=== PATIENT | female | born 1955 | race Two or more races ===

== ENCOUNTER 2024-12-21 07:09 | Day surgery (SDC) | payer OTHER ==
[~2024-12-21] VITALS: Ht 157.5 cm; Wt 65.8 kg
[~2024-12-21 07:09] MED LIST: ACET-1304 PO; ASCO500T11 PO; ASPI1TAB20 PO; ATOR10TA PO; BERB500C PO; CHOL25CH3 PO; CYAN-17 PO; GABA-1308 PO; HYDR12.59 PO; LEFL20TA PO; LEVO50TA61 PO; LOSA-535 PO; METO25TA36 PO; MULT-1018 OR; POTA-215 PO
[2024-12-21] MEDS ORDERED: PROPOFOL 10 MG/ML 20 ML IV ONE (07:53)
[2024-12-21] MEDS ORDERED: fentaNYL CITRATE 100 MCG/2 ML VL ONE (07:53)
[2024-12-21] MEDS ORDERED: PHENYLEPHRINE HCL 10 MG/ML VL ONE (07:57)
[2024-12-21] MEDS ORDERED: SODIUM CHLORIDE LOCK 10 ML ONE ×2 (07:57→07:59)
[2024-12-21] MEDS ORDERED: diphenhdrAMINE HCL 50 MG/1 ML VL ONE (08:00)
[2024-12-21 08:21] VITALS: PULSE 82; RESP 13; TEMP 97.7; O2SAT 99
--- NOTE | 2024-12-21 08:22 | DVHHP2 ---
GI H&P Pre-Op Assessment Date: 12/21/24 Chief complaint: Positive Cologuard test HPI: per clinic note Past medical history: per clinic note Past surgical history: per clinic note Family history: per clinic note Physical exam: General: NAD, AAOX3 HEENT: PERRL, no scleral icterus, normal hearing, gums without lesions or bleeding, oropharynx clear without erythema or exudate. Neck: Supple without enlargement of the thyroid, or lymphadenopathy. Chest: Normal size and shape, no tenderness, lung erickson clear to auscultation and percussion, nonlabored breathing. Heart: RRR, no murmur Abdomen: non-distended, no tenderness to palpation, +BS, no hepatosplenomegaly Extremities: no edema Neurological: CN II-XII intact, sensation intact in all extremities, 5+ strength in all extremities Skin: No rashes, No jaundice Assessment: - Positive Cologuard test Plan: - Colonoscopy - Risks (bleeding, infection, perforation, reaction to sedation medications and cardiopulmonary arrest) and benefit of the procedure were explained to patient. Patient agrees to undergo the procedure. SUZANNE LYNN MD Dec 21, 2024 08:22
--- NOTE | 2024-12-21 08:23 | DVHOP2 ---
Operative Report DATE OF OPERATION: 12/21/24 PROCEDURE: Colonoscopy. PREOPERATIVE INDICATION: The patient is a 69 -year-old female undergoing colonoscopy for positive Cologuard test. POSTOPERATIVE DIAGNOSES: 1. 5 mm sigmoid polyp was removed with hot snare and retrieved. 2. Internal hemorrhoids 3. Anal skin tags 4. Few diffuse diverticulosis PROCEDURE PERFORMED BY: Leonides Marquez M.D. SCOPE: Olympus videocolonoscope. ASA CLASS: 3 PREOPERATIVE MEDICATIONS: MAC with Dr Willson PROCEDURE IN DETAIL: After obtaining an informed consent, the patient was placed on left lateral decubitus position. She was then sedated with the above medications. A rectal examination was performed that show external anal skin tags. The colonoscope was then passed through the anus into the rectosigmoid and through the descending, transverse, and ascending colon up to the cecum with visualization of the appendiceal orifice, base of the cecum and the ileocecal valve. A 5 mm sigmoid polyp was removed with hot snare and retrieved. There was a few diffuse diverticulosis. There were internal hemorrhoids. The colonoscope was then withdrawn. The patient tolerated the procedure well without difficulty. WITHDRAWAL TIME: 6 minutes QUALITY OF THE PREP: [place] Bowel Prep score: 7 COMPLICATIONS : None SPECIMENS: Colon polyp DISPOSITION: D/C to home PLAN: 1. Repeat colonoscopy base on biopsy result LEONIDES MARQUEZ MD Dec 21, 2024 08:23
--- NOTE | 2024-12-21 08:24 | DVHDS2 ---
Physician Discharge Progress N Final Diagnosis: Colon polyp, internal hemorrhoids, anal skin tag, diverticulosis Operations or Procedures: Operations or Procedures Colonoscopy with hot snare polypectomy Condition on Discharge: Good Disposition: Home Discharge Instructions: Diet: Regular Activity: No Restrictions, As Tolerated Medications: Resume previous home medications Follow Up Care: Discharge Statement: "Patient was advised to return to the ER or call 911 if any headaches, dizziness, shortness of breath, chest pain, abdominal pain, bleeding, fevers, or worsening of medical condition. Patient was counseled about treatment plan, medications, possible side effects, patientverbalized understanding. All questions were answered to the best of my ability. This discharge took greater then 30 minutes in planning, reviewing documentation, counseling the patient, and discussing with other team members." SUZANNE LYNN MD Dec 21, 2024 08:24
[2024-12-21 08:51] VITALS: BP 142/77; PULSE 73; RESP 19
--- NOTE | 2024-12-24 13:17 | ECG ---
[facility] Test Date: 2024-12-21 Test Time: 07:42:47 Pat Name: SHARRI SRIVASTAVA Department: Room: Gender: F [employer] Operator: DE LA FUENTE : 1955 Requested By: SUZANNE LYNN Order Number: [id number] Reading MD: Nas Wallace Measurements Intervals [place] Rate: 94 P: 63 AL: 148 QRS: 3 QRSD: 84 T: 30 QT: 352 QTc: 440 Interpretive Statements Normal sinus rhythm Nonspecific ST abnormality Electronically Signed On 12-24-2024 14:10:27 PDT by Nas Wallace Please click the below link to view image of tracing.
== END 2024-12-21 09:17 | disposition home or self-care (01) ==
LOC: GI 07:09
PROVIDERS: ATTEND Internal Medicine Gastroenterology
DX: R19.5 Other fecal abnormalities (principal); K63.5 Polyp of colon; K57.30 Diverticulosis of large intestine without perforation or abscess without bleeding; K64.4 Residual hemorrhoidal skin tags; K64.8 Other hemorrhoids; I12.9 Hypertensive chronic kidney disease with stage 1 through stage 4 chronic kidney disease, or unspecified chronic kidney disease; N18.2 Chronic kidney disease, stage 2 (mild); E03.9 Hypothyroidism, unspecified; E78.5 Hyperlipidemia, unspecified; Z79.890 Hormone replacement therapy; Z79.82 Long term (current) use of aspirin; Z79.899 Other long term (current) drug therapy; Z90.89 Acquired absence of other organs; Z86.0100 Personal history of colon polyps, unspecified; Z98.890 Other specified postprocedural states
CPT/HCPCS: 45385; 88305; 93005; J1200; J2371; J2704; J3010; J7030